=== PATIENT | male | born 1955 | race Caucasian/White ===

== ENCOUNTER → 2016-09-11 | Outpatient (CLI) | payer OTHER ==
[~2016-09-11] MED LIST: ARMOUR THYROID120 M1 PO; BRIN20TA PO; CARVEDILOL12.5 MG PO; DULOXETINE HCL60 MG PO; HYDRALAZINE10 MG PO; HYDROXYZINE PAM50 MG PO; LISINOPRIL10 M1 PO; LORAZEPAM1 MG PO; METFORMIN HCL1000 MG PO; QUETIAPINE FUM100 M3 PO; REXULTI2 MG PO; TRADJENTA5 M1 PO; VISTARIL50 MG PO
[2016-09-14 04:09] LABS: CLONAZEPAM (KLONOPIN),SERUM 12 ng/mL (20-70)
== END | disposition home or self-care (01) ==
LOC: LAB 10:51
PROVIDERS: Psychiatry & Neurology Psychiatry
DX: Z79.899 Other long term (current) drug therapy (principal)

== ENCOUNTER → 2017-10-13 | Outpatient (CLI) | payer OTHER | END | disposition home or self-care (01) | LOC: ORTHO 04:32 | DX: M75.52 Bursitis of left shoulder (principal); G89.29 Other chronic pain ==

== ENCOUNTER → 2017-11-02 | Outpatient (CLI) | payer OTHER | END | disposition home or self-care (01) | LOC: MRI 10-31 13:00 | DX: M75.102 Unspecified rotator cuff tear or rupture of left shoulder, not specified as traumatic (principal); M19.012 Primary osteoarthritis, left shoulder ==

== ENCOUNTER → 2017-12-15 | Outpatient (CLI) | payer OTHER ==
[~2017-12-15] MED LIST changes: +ALOGLIPTIN25 MG PO; +CLONAZEPAM1 MG PO; +HYDROCHLOROTH12.5 M2 PO; +LOSARTAN POTAS100 M1 PO; +MIRTAZAPINE15 M2 PO; +PERCOCET 5-3251 EACH PO; +QUETIAPINE FUM400 M1 PO; +ZOFRAN4 MG PO
[2017-12-15 12:51] LABS: BASO % 0.4 % (0.0-1.0); EOS # 0.2 10*3/uL (0.0-0.4); HEMATOCRIT 41.7 % (42.0-52.0); HEMOGLOBIN 13.8 g/dl (14.0-18.0); LYMPH # 2.4 10*3/uL (1.3-4.4); LYMPH % 44.2 % (27.0-41.0); MEAN CELL VOLUME 87.6 fl (80.0-94.0); MEAN CORPUSCULAR HGB CONC 33.1 g/dl (33.0-37.0); MEAN PLATELET VOLUME 10.8 fl (9.6-12.3); MONO # 0.6 10*3/uL (0.1-1.0); MONO % 10.6 % (3.0-9.0); NEUT # 2.3 10*3/uL (2.3-7.9); NEUT % 41.6 % (47.0-73.0); PLATELET COUNT AUTOMATED 217 10*3/uL (130-400); RED BLOOD COUNT 4.76 10*6/uL (4.50-5.90); RED CELL DISTRI WIDTH 12.2 % (0-14.5); WHITE BLOOD COUNT 5.4 10*3/uL (4.8-10.8)
[2017-12-15 13:07] LABS: ALBUMIN 4.2 gm/dl (3.1-4.5); CREATININE 1.52 mg/dL (0.70-1.30); POTASSIUM 3.8 mmol/L (3.5-5.1); TOTAL PROTEIN 7.5 gm/dL (6.4-8.2)
[2017-12-15 13:13] LABS: THYROID STIM HORMONE (HS) 1.29 uIU/ml (0.358-4.75)
== END | disposition home or self-care (01) ==
LOC: LAB 12:16
PROVIDERS: Orthopaedic Surgery
DX: M13.812 Other specified arthritis, left shoulder (principal); Z79.899 Other long term (current) drug therapy

== ENCOUNTER → 2017-12-22 | Day surgery (SDC) | payer OTHER ==
[2017-12-15 11:03] VITALS: BP 134/78
[2017-12-22] VITALS (7 sets, daily range): BP systolic 117–134; BP diastolic 72–78
[~2017-12-22] VITALS: Ht 180.3 cm; Wt 111.1 kg
--- NOTE | ~2017-12-22 | O ---
[place], [place] OPERATIVE NOTE NAME: JUDITH CHILEL [facility] #: [id number] UNIT #: [id number] ROOM: DOCTOR: SAM KAUFMAN DO BIRTHDATE: [birth year] DOS: 12/22/2017 PREOPERATIVE DIAGNOSIS: Left shoulder acromioclavicular joint, degenerative joint disease. POSTOPERATIVE DIAGNOSIS: Left shoulder acromioclavicular joint, degenerative joint disease. OPERATIVE PROCEDURE: Left shoulder Frida procedure. Excision of the distal clavicle. SURGEON: Sam Kaufman DO THERMODYNAMICS TEACHER: Abisai. ANESTHESIA: Xavier, HVAC SPECIALIST, general endotracheal. INDICATIONS: The patient is a 62-year-old male with a history of pain and disability about the left shoulder. The patient underwent conservative treatment including injection, NSAIDs and physical therapy. MRI of the shoulder located tendinopathy without full thickness tear, acromioclavicular joint degenerative joint disease and mild glenohumeral degenerative joint disease. The risks and benefits of the procedure were explained to the patient preoperatively. Preoperative labs and x-rays were obtained. DESCRIPTION OF PROCEDURE: The right shoulder was marked in the holding room. The patient was brought to the operative suite. The patient was placed supine on the operative table. A general anesthetic with endotracheal intubation was performed. The patient received clindamycin preoperatively. The right shoulder was prepped and draped in usual orthopedic manner. The timeout was performed. The bony landmarks were identified and marked. An incision was planned longitudinally over the acromioclavicular joint. The area was injected with Marcaine 0.5% with epinephrine. Incision was made sharply with a scalpel. Subcutaneous tissue was spread down to the level of the distal clavicle. The acromioclavicular capsule was divided. The distal clavicle was exposed. An oscillating saw was used to remove the distal 1 cm of the clavicle. The area was smoothed using a rasp. The area was copiously irrigated with normal saline. The capsule was closed with 0 Vicryl. This was followed by 2-0 Vicryl and skin sherry. Xeroform, 4 x 4s, and a Tegaderm dressing were applied. The patient was placed into a sling. The anesthetic was reversed. The patient was extubated and taken to recovery room in satisfactory condition. Sponge and needle count correct. ESTIMATED BLOOD LOSS: 10 mL. SPECIMENS: Distal clavicle. DRAINS: None. [place], [place] OPERATIVE NOTE NAME: JUDITH CHILEL UNIT #: [id number] ROOM: DOCTOR: SAM KAUFMAN DO BIRTHDATE: [birth year] PACKING: None. COMPLICATIONS: None. FINDINGS: Moderate to severe osteoarthritis of the right acromioclavicular joint. SAM KAUFMAN DO CM:OPRECORD:OPERATIVE NOTE 1701 [id number] SAM KAUFMAN DO 12/22/17 1745 interface
== END | disposition home or self-care (01) ==
LOC: SDC 12-15 10:15
DX: M19.012 Primary osteoarthritis, left shoulder (principal); I10 Essential (primary) hypertension; E11.9 Type 2 diabetes mellitus without complications; E07.9 Disorder of thyroid, unspecified; F41.9 Anxiety disorder, unspecified; F32.9 Major depressive disorder, single episode, unspecified; Z98.890 Other specified postprocedural states; Z80.9 Family history of malignant neoplasm, unspecified; Z82.49 Family history of ischemic heart disease and other diseases of the circulatory system; Z79.899 Other long term (current) drug therapy; Z88.0 Allergy status to penicillin; Z96.651 Presence of right artificial knee joint

== ENCOUNTER → 2021-09-14 | Day surgery (SDC) | payer OTHER ==
[~2021-09-14] VITALS: Ht 180.3 cm; Wt 104.3 kg
[~2021-09-14] MED LIST changes: +ATARAX,VISTARIL50 MG PO; +JANUVIA100 MG PO; +LIPITOR40 MG PO; +TRAZODONE50 MG PO
[2021-09-14 07:20] VITALS: BP 157/89
[2021-09-14 08:32] VITALS: BP 130/67
[2021-09-14 08:46] VITALS: BP 135/78
[2021-09-14 08:59] VITALS: BP 129/79
== END | disposition home or self-care (01) ==
LOC: SDC 08-06 08:00
PROVIDERS: ATTEND Surgery
DX: Z12.11 Encounter for screening for malignant neoplasm of colon (principal); D12.3 Benign neoplasm of transverse colon; K29.50 Unspecified chronic gastritis without bleeding; I10 Essential (primary) hypertension; E11.9 Type 2 diabetes mellitus without complications; F32.9 Major depressive disorder, single episode, unspecified; F41.9 Anxiety disorder, unspecified; K21.9 Gastro-esophageal reflux disease without esophagitis; Z88.0 Allergy status to penicillin; Z79.899 Other long term (current) drug therapy; Z98.890 Other specified postprocedural states; Z20.822 Contact with and (suspected) exposure to COVID-19

== ENCOUNTER 2023-03-29 20:08 | Emergency (ER) | payer OTHER ==
[~2023-03-29] VITALS: Ht 180.3 cm; Wt 104.3 kg
[2023-03-29 20:42] LABS: BASO % 0.4 % (0.0-1.0); EOS # 0.1 10*3/uL (0.0-0.4); EOS % 1.9 % (1.0-4.0); HEMATOCRIT 42.5 % (42.0-52.0); LYMPH % 26.6 % (27.0-41.0); MEAN CELL VOLUME 83.3 fl (80.0-94.0); MEAN CORPUSCULAR HGB 29.6 pg (27.0-31.0); MEAN CORPUSCULAR HGB CONC 35.5 g/dl (33.0-37.0); MEAN PLATELET VOLUME 10.8 fl (9.6-12.3); MONO # 0.7 10*3/uL (0.1-1.0); MONO % 9.9 % (3.0-9.0); NEUT # 4.6 10*3/uL (2.3-7.9); NEUT % 61.1 % (47.0-73.0); PLATELET COUNT AUTOMATED 248 10*3/uL (130-400); RED CELL DISTRI WIDTH 11.6 % (0-14.5); WHITE BLOOD COUNT 7.5 10*3/uL (4.8-10.8)
[2023-03-29 21:12] LABS: POTASSIUM 3.4 mmol/L (3.4-5.1); TOTAL PROTEIN 6.8 gm/dL (6.0-8.0)
== END 2023-03-30 01:18 | disposition home or self-care (01) ==
LOC: ED 20:08
PROVIDERS: Internal Medicine
DX: E11.65 Type 2 diabetes mellitus with hyperglycemia (principal); E11.22 Type 2 diabetes mellitus with diabetic chronic kidney disease; I12.9 Hypertensive chronic kidney disease with stage 1 through stage 4 chronic kidney disease, or unspecified chronic kidney disease; N18.9 Chronic kidney disease, unspecified; F41.9 Anxiety disorder, unspecified; N17.9 Acute kidney failure, unspecified; F32.A Depression, unspecified; E78.00 Pure hypercholesterolemia, unspecified; K21.9 Gastro-esophageal reflux disease without esophagitis; Z88.0 Allergy status to penicillin; Z96.651 Presence of right artificial knee joint; Z98.890 Other specified postprocedural states

== ENCOUNTER → 2023-11-24 | Outpatient (CLI) | payer MEDICARE, MEDICAID ==
[2023-11-24 14:38] LABS: BASO % 0.2 % (0.0-1.0); EOS # 0.2 10*3/uL (0.0-0.4); EOS % 1.9 % (1.0-4.0); HEMATOCRIT 40.6 % (42.0-52.0); LYMPH # 2.1 10*3/uL (1.3-4.4); LYMPH % 26.1 % (27.0-41.0); MEAN CELL VOLUME 84.1 fl (80.0-94.0); MEAN CORPUSCULAR HGB 29.4 pg (27.0-31.0); MEAN PLATELET VOLUME 9.9 fl (9.6-12.3); MONO # 0.8 10*3/uL (0.1-1.0); MONO % 10.3 % (3.0-9.0); NEUT % 61.3 % (47.0-73.0); PLATELET COUNT AUTOMATED 250 10*3/uL (130-400); RED BLOOD COUNT 4.83 10*6/uL (4.50-5.90); RED CELL DISTRI WIDTH 12.4 % (0-14.5); WHITE BLOOD COUNT 8.1 10*3/uL (4.8-10.8)
[2023-11-24 14:51] LABS: BILIRUBIN Negative (Negative); BLOOD Negative (Negative); CLARITY Clear (Clear); COLOR Yellow (Yellow); GLUCOSE Trace (Negative); KETONE Negative (Negative); LEUKO ESTERASE Negative (Negative); NITRITE Negative (Negative); PH 6.5 (4.5-8.0); UROBILINOGEN 0.2 E.U./dl (0.0-1.0)
[2023-11-24 14:56] LABS: URINE CREATININE RANDOM 157.65 mg/dL
[2023-11-24 15:07] LABS: POTASSIUM 3.2 mmol/L (3.4-5.1); TOTAL PROTEIN 6.9 gm/dL (6.0-8.0); URIC ACID 5.8 mg/dL (3.7-9.2)
[2023-11-24 15:10] LABS: VITAMIN D, 25-HYDROXY 45.7 ng/mL (30-100)
[2023-11-24 15:14] LABS: MUCOUS 2+; RBC 0-2 rbc/hpf (0-2)
== END | disposition home or self-care (01) ==
LOC: US 13:30 → LAB 13:41
PROVIDERS: ATTEND Internal Medicine Nephrology
DX: N20.0 Calculus of kidney (principal); N18.32 Chronic kidney disease, stage 3b; E55.9 Vitamin D deficiency, unspecified; N28.1 Cyst of kidney, acquired; D63.1 Anemia in chronic kidney disease

== ENCOUNTER → 2023-11-26 | Outpatient (CLI) | payer MEDICARE, MEDICAID | LOC: LAB 10:34 | PROVIDERS: ATTEND Internal Medicine Nephrology | DX: N18.32 Chronic kidney disease, stage 3b (principal); E55.9 Vitamin D deficiency, unspecified; D63.1 Anemia in chronic kidney disease ==

== ENCOUNTER 2024-01-07 21:26 | Emergency (ER) | payer MEDICARE, MEDICAID ==
[~2024-01-07] VITALS: Ht 180.3 cm; Wt 127.0 kg
[2024-01-07 23:07] LABS: POTASSIUM 3.6 mmol/L (3.4-5.1)
[2024-01-07] MEDS ORDERED: SODIUM CHLORIDE 0.9% 1,000 ML IV ONE (23:10)
[2024-01-07] MEDS ORDERED: INSULIN REGULAR, HUMAN 1 UNIT/0.01 ML IV ONE (23:10)
== END 2024-01-08 01:10 | disposition home or self-care (01) ==
LOC: ED 21:26
PROVIDERS: Internal Medicine
DX: E11.65 Type 2 diabetes mellitus with hyperglycemia (principal); R11.0 Nausea; R53.81 Other malaise; I10 Essential (primary) hypertension; F41.9 Anxiety disorder, unspecified; F32.A Depression, unspecified; K21.9 Gastro-esophageal reflux disease without esophagitis; E78.00 Pure hypercholesterolemia, unspecified; Z88.0 Allergy status to penicillin; Z96.651 Presence of right artificial knee joint; Z98.890 Other specified postprocedural states

== ENCOUNTER → 2024-01-13 | Outpatient (CLI) | payer MEDICARE, MEDICAID | END | disposition home or self-care (01) | LOC: ORTHO 01:42 | PROVIDERS: ATTEND Orthopaedic Surgery | DX: M19.012 Primary osteoarthritis, left shoulder (principal); M25.512 Pain in left shoulder ==

== ENCOUNTER → 2024-02-28 | Outpatient (CLI) | payer MEDICARE, MEDICAID ==
[2024-02-28 16:54] LABS: BILIRUBIN Negative (Negative); BLOOD Negative (Negative); CLARITY Clear (Clear); COLOR Yellow (Yellow); GLUCOSE 1+ (Negative); KETONE Trace (Negative); LEUKO ESTERASE Negative (Negative); NITRITE Negative (Negative); PH 5.5 (4.5-8.0); SPECIFIC GRAVITY 1.025 (1.001-1.030)
[2024-02-28 16:59] LABS: URINE CREATININE RANDOM 197.73 mg/dL
[2024-02-28 17:05] LABS: TOTAL PROTEIN 6.9 gm/dL (6.0-8.0)
[2024-02-28 17:09] LABS: BACTERIA TRACE; FINE GRANULAR CAST 0-2; RBC 0-2 rbc/hpf (0-2)
[2024-02-28 17:10] LABS: MUCOUS 1+
== END | disposition home or self-care (01) ==
LOC: LAB 16:09
PROVIDERS: ATTEND Internal Medicine Nephrology
DX: I12.9 Hypertensive chronic kidney disease with stage 1 through stage 4 chronic kidney disease, or unspecified chronic kidney disease (principal); E11.22 Type 2 diabetes mellitus with diabetic chronic kidney disease; N18.1 Chronic kidney disease, stage 1; R60.9 Edema, unspecified; E87.6 Hypokalemia

== ENCOUNTER 2025-06-17 17:23 | Emergency (ER) | payer MEDICARE, MEDICAID ==
[~2025-06-17] VITALS: Ht 180.3 cm; Wt 104.3 kg
[2025-06-17 19:47] LABS: BASO # 0.1 10*3/uL (0.0-0.1); BASO % 1.0 % (0.0-1.0); EOS # 0.8 10*3/uL (0.0-0.4); EOS % 13.6 % (1.0-4.0); MEAN CELL VOLUME 85.3 fl (80.0-94.0); MEAN CORPUSCULAR HGB 29.4 pg (27.0-31.0); MEAN PLATELET VOLUME 9.6 fl (9.6-12.3); MONO # 0.6 10*3/uL (0.1-1.0); MONO % 10.5 % (3.0-9.0); NEUT # 2.6 10*3/uL (2.3-7.9); NEUT % 42.4 % (47.0-73.0); NUCLEATED RED BLOOD CELL 0.0 % (0.0-0.0); NUCLEATED RED BLOOD CELL 0.0 10*3/uL (0.0-0.0); PLATELET COUNT AUTOMATED 245 10*3/uL (130-400); RED CELL DISTRI WIDTH 12.3 % (0-14.5)
[2025-06-17 19:51] LABS: BILIRUBIN Negative (Negative); BLOOD Negative (Negative); CLARITY Clear (Clear); COLOR Yellow (Yellow); KETONE Negative (Negative); LEUKO ESTERASE Negative (Negative); NITRITE Negative (Negative); PH 6.5 (4.5-8.0); SPECIFIC GRAVITY 1.010 (1.001-1.030); UROBILINOGEN 1.0 E.U./dl (0.0-1.0)
[2025-06-17 20:16] LABS: BUN 10.0 mg/dl (9-23); SGPT/ALT 34.0 U/L (5-49)
[2025-06-17 20:31] LABS: BACTERIA 1+
== END 2025-06-17 21:40 | disposition home or self-care (01) ==
LOC: ED 17:23
PROVIDERS: Nurse Practitioner Family
DX: B34.9 Viral infection, unspecified (principal); F41.9 Anxiety disorder, unspecified; F32.A Depression, unspecified; I10 Essential (primary) hypertension; E11.9 Type 2 diabetes mellitus without complications; Z20.822 Contact with and (suspected) exposure to COVID-19; Z96.651 Presence of right artificial knee joint; Z88.0 Allergy status to penicillin